=== PATIENT | male | born 1975 | race Caucasian/White ===

== ENCOUNTER 2024-02-27 10:21 | Emergency (ER) | payer OTHER ==
[~2024-02-27] VITALS: Ht 167.6 cm; Wt 84.8 kg
[2024-02-27] MEDS ORDERED: LOSA100T46 PO (10:41)
[2024-02-27] MEDS ORDERED: [UNRECOGNIZED DRUG - CODE] PO (10:41)
[2024-02-27] MEDS ORDERED: BISO10TA14 PO (10:41)
[2024-02-27 11:43] LABS: BASO % 0.3 % (0.0-1.0); EOS # 0.2 10^3/uL (0.0-0.5); EOS % 1.6 % (0.0-3.0); HEMATOCRIT 49.3 % (42.0-52.0); HEMOGLOBIN 17.1 g/dl (13.5-17.5); LYMPH # 2.5 10^3/uL (1.5-5.0); LYMPH % 21.8 % (24.0-44.0); MEAN CORPUSCULAR HEMOGLOBIN 30.8 pg (27.0-33.0); MEAN CORPUSCULAR HGB CONC 34.7 g/dl (32.0-36.5); MEAN CORPUSCULAR VOLUME 88.8 fl (80.0-96.0); MONO % 8.8 % (2.0-8.0); NEUTROPHILS # 7.7 10^3/uL (1.5-8.5); NEUTROPHILS % 67.2 % (36.0-66.0); PLATELET COUNT, AUTOMATED 204 10^3/uL (150-450); RED BLOOD COUNT 5.55 10^6/uL (4.30-6.10); WHITE BLOOD COUNT 11.5 10^3/uL (4.0-10.0)
[2024-02-27 12:40] LABS: BLOOD UREA NITROGEN 20 MG/DL (9-23); CALCIUM LEVEL 9.3 MG/DL (8.5-10.1); CARBON DIOXIDE LEVEL 26 MMOL/L (20-31); CHLORIDE LEVEL 109 MMOL/L (98-107); CK-MB VALUE MASS 4.6 NG/ML (<3.6); CPK CREATINE PHOSPHOKINASE 356 U/L (46-171); CREATININE FOR GFR 1.02 MG/DL (0.70-1.30); FREE T4 1.29 NG/DL (0.89-1.76); GLOMERULAR FILTRATION RATE > 60.0 (>60); GLUCOSE, FASTING 100 MG/DL (60-100); MB/CK RELATIVE INDEX 1.29 (< OR =4); POTASSIUM SERUM 3.8 MMOL/L (3.5-5.1); SODIUM LEVEL 142 MMOL/L (136-145); THYROID STIMULATING HORMONE 1.238 uIU/ML (0.55-4.78)
[2024-02-27 13:32] LABS: MB/CK RELATIVE INDEX 1.45 (< OR =4)
[2024-02-27 13:57] VITALS: BP 154/75; TEMP 97.2; O2SAT 94
== END 2024-02-27 14:06 | disposition home or self-care (01) ==
LOC: EDBD 10:21 → M ED 10:21
DX: R55 Syncope and collapse (principal); S00.83XA Contusion of other part of head, initial encounter; R00.1 Bradycardia, unspecified; I10 Essential (primary) hypertension; Z88.0 Allergy status to penicillin; Z79.899 Other long term (current) drug therapy; Y92.9 Unspecified place or not applicable; Y93.9 Activity, unspecified; Y99.9 Unspecified external cause status